=== PATIENT | male | born 1985 | race Caucasian/White ===

== ENCOUNTER 2024-08-28 23:45 | Emergency (ER) | payer BC ==
[~2024-08-28] VITALS: Ht 182.9 cm; Wt 90.7 kg
[2024-08-29 00:08] VITALS: BP_SYST 139; PULSE 57; RESP 20; TEMP 98; O2SAT 98
[2024-08-29] MEDS: KETOROLAC TROMETHAMINE 30 MG VIAL IVP ONE (01:14)
[2024-08-29] MEDS: ACETAMINOPHEN 500 MG TABLET PO ONE (01:14)
[2024-08-29] MEDS ORDERED: KETOROLAC TROMETHAMINE 30 MG VIAL IM ONE (01:15)
[2024-08-29 01:32] LABS: ALBUMIN 4.2 g/dL (3.4-4.8); BILIRUBIN,DIRECT 0.1 mg/dL (0.0-0.3); CALCIUM 9.1 mg/dL (8.4-11.0); CREATININE 1.24 mg/dL (0.55-1.30); POTASSIUM 3.8 mmol/L (3.5-5.1); TOTAL BILIRUBIN 0.4 mg/dL (0.0-1.0); TOTAL PROTEIN, SERUM 7.4 g/dL (6.4-8.3)
[2024-08-29 01:42] LABS: BASOPHILS % (AUTO) 0.2 % (0.0-2.0); EOSINOPHILS # (AUTO) 0.1 K/uL (0.0-0.4); EOSINOPHILS % (AUTO) 1.3 % (0.0-4.0); HEMOGLOBIN 16.1 g/dL (14.0-18.0); LYMPHOCYTES % (AUTO) 23.5 % (20.5-51.5); MEAN CORPUSCULAR HEMOGLOBIN 32 pg (27-31); MEAN CORPUSCULAR HGB CONC 35 % (32-36); MEAN CORPUSCULAR VOLUME 90 fL (79.0-98.0); MONOCYTES # (AUTO) 0.5 K/uL (0.0-1.0); MONOCYTES % (AUTO) 5.6 % (1.7-9.3); NEUTROPHILS % (AUTO) 69.4 % (40.0-70.0); PLATELET COUNT (AUTO) 274 K/uL (130-430); WHITE BLOOD COUNT (AUTO) 8.7 K/uL (4.8-10.8)
[2024-08-29] MEDS ORDERED: cefTRIAXone 1 GM VIAL ONE (06:14)
[2024-08-29] MEDS: cefTRIAXone 1 GM in D5W 50 ML IV ONE (06:15)
[2024-08-29 07:14] VITALS: BP_SYST 114; PULSE 56; RESP 16; TEMP 97.8; O2SAT 96
== END 2024-08-29 07:14 | disposition home or self-care (01) ==
LOC: SED 23:45
DX: K80.50 Calculus of bile duct without cholangitis or cholecystitis without obstruction (principal); K80.20 Calculus of gallbladder without cholecystitis without obstruction; R10.11 Right upper quadrant pain
CPT/HCPCS: 99285; 80076; 80048; 83690; 85025; 87040; 36415; 96365; 76705; 96375; J0696; J1885